=== PATIENT | male | born 1950 | race Caucasian/White ===

== ENCOUNTER → 2019-02-08 | Outpatient (CLI) | payer MEDICARE, OTHER ==
[~2019-02-08] MED LIST: KLONOPIN1 MG PO; LITHIUM CARBON600 MG PO; NEXIUM 40MG40 MG PEG; ZYPREXA5 MG PO
== END ==
LOC: COL.RAD 08:24
DX: Z13.6 Encounter for screening for cardiovascular disorders (principal); Z87.891 Personal history of nicotine dependence

== ENCOUNTER → 2019-12-11 | Outpatient (CLI) | payer MEDICARE, OTHER | LOC: COL.PUL 08:00 | DX: R06.02 Shortness of breath (principal); Z87.891 Personal history of nicotine dependence ==

== ENCOUNTER → 2021-08-27 | Outpatient (CLI) | payer MEDICARE, OTHER | LOC: COL.RAD 13:14 | DX: N28.1 Cyst of kidney, acquired (principal); N18.9 Chronic kidney disease, unspecified; I31.8 Other specified diseases of pericardium; R91.8 Other nonspecific abnormal finding of lung field ==

== ENCOUNTER → 2022-01-08 | Outpatient (CLI) | payer MEDICARE, OTHER | LOC: COL.VAS 08:33 | DX: N18.9 Chronic kidney disease, unspecified (principal) ==

== ENCOUNTER 2023-05-31 20:36 | Inpatient (IN) | payer MEDICARE ==
[~2023-05-31] VITALS: Ht 167.6 cm; Wt 101.0 kg
[~2023-05-31 20:36] MED LIST changes: +ABILIFY5 MG PO; +ATARAX 25MG25 MG/TAB PO; +ATIVAN 0.50.5 MG/TAB PO; +COGENTIN 1MG1 MG/TAB PO; +COZAAR 25MG25 MG/TAB PO; +LAMICTAL 100MG100 MG PO; +LIPITOR 80MG80 MG PO; +MICROZIDE12.5 MG PO; +PEPCID 20MG TAB20 MG PO; +PROSCAR 5MG5 MG PO; +RISPERDAL 1M1 MG/TAB PO; +ROBAXIN 50500 MG/TAB PO; +SEROQUEL 1100 MG/TAB PO; +TOPROL XL 25MG25 MG PO; +ZYPREXA ZYD10 MG/TAB PO
[2023-05-31] MEDS ORDERED: NS 1,000 ML IV ONE (21:15)
[2023-05-31] MEDS ORDERED: fentaNYL 50 MCG/ML 2 ML VIAL IV ONE (21:15)
[2023-05-31 21:35] LABS: BASO % 0.4 % (0.0-2.0); EOS # 0.1 K/mm3 (0.0-0.7); EOS % 1.4 % (0.0-4.0); GRAN # 7.2 K/mm3 (1.4-6.5); GRAN % 71.3 % (42.2-75.2); HEMATOCRIT 38.4 % (42.0-52.0); HEMOGLOBIN 13.1 g/dl (13.5-18.0); LYMPH # 1.7 K/mm3 (1.2-3.4); LYMPH % 16.7 % (20.0-51.0); MEAN CELL VOLUME 89 fl (80.0-100.0); MEAN CORPUSCULAR HEMOGLOBIN 30 pg (27-31); MEAN CORPUSCULAR HGB CONC 34 g/dl (33.0-37.0); MEAN PLATELET VOLUME 9.9 fl (7.4-10.4); MONO % 9.9 % (1.7-9.3); PLATELET COUNT 197 K/mm3 (130-400); RED BLOOD COUNT 4.34 M/mm3 (4.20-5.60); REDCELL DISTRIBUTION WIDTH-CV 13.3 % (11.5-14.5)
[2023-05-31 21:55] LABS: ALBUMIN 3.9 gm/dL (3.4-4.8); BILIRUBIN,TOTAL 0.9 mg/dL (0.2-1.2); C-REACTIVE PROTEIN 0.39 mg/dL (0.00-0.50); CALCIUM 9.2 mg/dL (8.4-10.2); CREATININE, serum 2.02 mg/dL (0.72-1.25); POTASSIUM 3.9 mmol/L (3.5-4.5); TOTAL PROTEIN 6.5 gm/dL (6.2-8.1)
[2023-06-01] VITALS (12 sets, daily range): BP systolic 97–129; BP diastolic 65–80; PULSE 82–98; TEMP 97.6–99.8
[2023-06-01] MEDS ORDERED: fentaNYL 50 MCG/ML 2 ML VIAL IV ONE (01:15)
[2023-06-01] MEDS ORDERED: DESYREL 50MG50 MG PO (01:24)
[2023-06-01] MEDS ORDERED: DEPAKOTE ER 25250 MG PO (01:25)
[2023-06-01] MEDS ORDERED: MICARDIS20 MG PO (01:26)
[2023-06-01] MEDS ORDERED: PRILOSEC 20MG20 MG PO (01:26)
[2023-06-01] MEDS ORDERED: INVEGA6 MG PO (01:27)
[2023-06-01] MEDS ORDERED: MULTIPLE VITAMI1 CAP PO (01:27)
[2023-06-01] MEDS ORDERED: [UNRECOGNIZED DRUG - OTHER] TP (01:28)
[2023-06-01] MEDS ORDERED: NS 1,000 ML IV SCH ×2 (01:45→12:00)
[2023-06-01] MEDS ORDERED: Acetaminophen 325 MG TAB PO PRN (01:45)
[2023-06-01] MEDS ORDERED: Morphine 4 MG/ML VIAL IV PRN (01:45)
[2023-06-01] MEDS ORDERED: Ondansetron 4 MG/2 ML VIAL IV PRN ×2 (01:45→11:00)
[2023-06-01] MEDS ORDERED: traZODone 50 MG TAB PO PRN (02:00)
--- NOTE | 2023-06-01 02:41 | NUR ---
Patient arrived to surgical unit from ER at approximately 0210. Alert and oriented x 4, and able to make needs known. Denies having pain and discomfort at this time, stating that the Fentanyl helped. Encouraged to call when pain starts to come back to try and stay on top of the pain, and voiced understanding. Given ice water, juice, and jello as requested. Peripheral IV to right AC, IV fluids started per orders. Denies having SOB and dyspnea. LS CTA. HRR. BSAx4. Reports BM 05/30. No edema. Patient denies having any questions, needs, or concerns at this time. When completing med rec, noted that Depakote was put in wrong, he takes 500 mg BID, not 250 BID. Call placed to DEVIN Mcgowan and asked if he wanted to change his order to 500 BID, but stated not at this time. Patient in bed with call light within reach.
--- NOTE | 2023-06-01 02:45 | NUR ---
DEVIN Mcgowan changed Depakote to 500 mg PO BID, per home dose.
--- NOTE | 2023-06-01 05:57 | NUR ---
Patient given PRN Morphine as requested for abdominal pain. Continues on IV fluids per orders. Encouraged to not drink as much to see if that helps decrease pain as well. Voices no further questions, needs, or concerns at this time. In bed with call light within reach.
[2023-06-01 07:35] LABS: HEMATOCRIT 38.4 % (42.0-52.0); MEAN CELL VOLUME 89 fl (80.0-100.0); MEAN CORPUSCULAR HEMOGLOBIN 30 pg (27-31); MEAN CORPUSCULAR HGB CONC 34 g/dl (33.0-37.0); MEAN PLATELET VOLUME 10.4 fl (7.4-10.4); PLATELET COUNT 199 K/mm3 (130-400); RED BLOOD COUNT 4.34 M/mm3 (4.20-5.60); REDCELL DISTRIBUTION WIDTH-CV 13.4 % (11.5-14.5)
[2023-06-01 08:06] LABS: CHOLESTEROL RISK RATIO 3.3
[2023-06-01 08:12] LABS: ALANINE AMINOTRANSFERASE 16 U/L (0-55); ALBUMIN 3.8 gm/dL (3.4-4.8); ALKALINE PHOSPHATASE 55 U/L (40-150); ANION GAP 12 mmol/L (7-16); AST,SGOT 19 U/L (5-34); BLOOD UREA NITROGEN 31 mg/dL (8-26); CALCIUM 9.1 mg/dL (8.4-10.2); CARBON DIOXIDE 23 mmol/L (23-31); CHLORIDE 107 mmol/L (98-107); CREATININE, serum 1.93 mg/dL (0.72-1.25); GLUCOSE 98 mg/dL (70-99); MAGNESIUM 1.8 mg/dL (1.6-2.6); SODIUM 142 mmol/L (136-145); TOTAL PROTEIN 6.6 gm/dL (6.2-8.1)
[2023-06-01 08:32] LABS: LIPASE > 1200 U/L (8-78)
[2023-06-01] MEDS ORDERED: Pantoprazole 40 MG in NS 10 ML IV SCH (09:00)
[2023-06-01] MEDS ORDERED: Telmisartan 40 MG **** subs to Losartan 50 MG PO SCH (09:00)
[2023-06-01] MEDS ORDERED: Heparin 5,000 UNITS/ML 1 ML VIAL SQ SCH (09:00)
[2023-06-01] MEDS ORDERED: Patient's Own Medication Item PO SCH ×3 (09:00→20:00)
[2023-06-01] MEDS ORDERED: Benztropine 1 MG TAB PO SCH (09:00)
[2023-06-01] MEDS ORDERED: Finasteride 5 MG TAB PO SCH (09:00)
[2023-06-01] MEDS ORDERED: Losartan 50 MG TAB PO SCH (09:00)
--- NOTE | 2023-06-01 09:22 | NUR ---
community worker attended interdisciplinary clinical rounding and patient will have an ultrasound completed and then may need his gallbladder removed depending on the results. SW notes PT has signed off on this patient. Soical worker met with patient to discuss discharge planning. Patient reports he lives in [place] with his , Anjelica, P# [phone]. PCP is Dr. Bajwa, Pharmacy is [facility]. No issues affording medications at this time. Patient reports his DPOA-HC is Anjelica and believes there is a copy of this form at home. Patient has a quad cane that he does not currently use, no other DME. Patient reports to be independent with ADLS. Patient transports himself to and from appointments. Patient would like to return home at time of discharge. Discharge plan: Home
[2023-06-01] MEDS ORDERED: cefTRIAXone 2 G in Water For Injection,Sterile 20 ML IV SCH (10:00)
[2023-06-01] MEDS ORDERED: metroNIDAZOLE 500 MG/100 ML IVPB IV SCH (10:00)
--- NOTE | 2023-06-01 11:00 | NUR ---
PT RESTING IN BED WTIH PAIN IN ABDOMEN, PAIN MEDICATION PROVIDED PER EMAR. PT REMAINS NPO FOR PROCEDURES TODAY, STEADY GAIT TO BATHROOM, FAMILY AT BEDSIDE. NO NEEDS AT THIS TIME, WILL CONTINUE TO MONITOR.
[2023-06-01] MEDS ORDERED: Lidocaine PF 2% (20 MG/ML) 5 ML VIAL ONE (12:47)
--- NOTE | 2023-06-01 13:03 | NUR ---
D: Initial visit: Product Inspection Coordinator stopped by room on rounds. Pt was resting and content with in the room. A: Pt requested prayer. Product Inspection Coordinator prayed with and pt, both appreciated the visit. No other needs right now. P: Product Inspection Coordinator informed pt that if he needed anything from the rigging slinger area to let his nurse know. Product Inspection Coordinator will follow up as needed.
--- NOTE | 2023-06-01 20:49 | NUR ---
PT IN BED, REPORTS PAIN IN ABD IS LESS. HS MEDS GIVEN INCLUDING TRAZODONE FOR SLEEP. HAS IVF TO RAC INFUSING WITHOUT PROBLEM. INDEPENDENT IN ROOM.
--- NOTE | 2023-06-01 22:03 | NUR ---
PT REPORTS PAIN TO ABD, MORPHINE 2MG IVP GIVEN NOW.
[2023-06-02] VITALS (7 sets, daily range): BP systolic 110–155; BP diastolic 71–78; PULSE 98–103; TEMP 97.8–98.5
--- NOTE | 2023-06-02 02:00 | NUR ---
PT RESTING IN BED. IS NPO.
[2023-06-02 06:46] LABS: BASO % 0.3 % (0.0-2.0); EOS # 0.2 K/mm3 (0.0-0.7); EOS % 2.5 % (0.0-4.0); GRAN # 6.5 K/mm3 (1.4-6.5); GRAN % 70.5 % (42.2-75.2); HEMOGLOBIN 11.6 g/dl (13.5-18.0); LYMPH # 1.2 K/mm3 (1.2-3.4); LYMPH % 13.1 % (20.0-51.0); MEAN CELL VOLUME 91 fl (80.0-100.0); MEAN CORPUSCULAR HEMOGLOBIN 30 pg (27-31); MEAN CORPUSCULAR HGB CONC 33 g/dl (33.0-37.0); MEAN PLATELET VOLUME 10.5 fl (7.4-10.4); MONO # 1.2 K/mm3 (0.1-0.6); MONO % 13.2 % (1.7-9.3); PLATELET COUNT 167 K/mm3 (130-400); RED BLOOD COUNT 3.85 M/mm3 (4.20-5.60); REDCELL DISTRIBUTION WIDTH-CV 13.8 % (11.5-14.5)
[2023-06-02 06:52] LABS: CALCIUM 8.8 mg/dL (8.4-10.2); CREATININE, serum 1.78 mg/dL (0.72-1.25); POTASSIUM 3.9 mmol/L (3.5-4.5)
--- NOTE | 2023-06-02 08:14 | NUR ---
PT RESTING IN BED WITH NO PAIN AT THIS TIME. STEADY GAIT TO BATHROOM, PT TOLERATING CLEAR LIQUIDS WELL. NO NEEDS AT THIS TIME, WILL CONTINUE TO MONITOR.
--- NOTE | 2023-06-02 10:56 | NUR ---
Initial visit; Patient and his Sean thanked Rehabilitation Psychologist for looking in on him and offering God's blessings. Rehabilitation Psychologist will keep Maxi in her prayers. He states he is doing well and is very thankful for this and requested that Rehabilitation Psychologist mention this in her prayers for him.
--- NOTE | 2023-06-02 14:10 | NUR ---
Pt and family provided discharge instructions. Discussed follow up appointments, discontinued medication, and new diet. No questions at this time. IV removed. Pt and family escorted out of building at this time.
== END 2023-06-02 14:10 | disposition home or self-care (01) | DRG 440 ==
LOC: COL.ER 20:36 → SURG 06-01 01:30
PROVIDERS: Emergency Medicine; Internal Medicine Gastroenterology; Physician Assistant; ADMIT Internal Medicine
PROC: 0DJ08ZZ Inspection of Upper Intestinal Tract, Via Natural or Artificial Opening Endoscopic (ICD-10-PCS; principal; 2023-06-01 13:00)
DX: K85.90 Acute pancreatitis without necrosis or infection, unspecified (principal); F25.9 Schizoaffective disorder, unspecified; K21.9 Gastro-esophageal reflux disease without esophagitis; N40.0 Benign prostatic hyperplasia without lower urinary tract symptoms; K80.20 Calculus of gallbladder without cholecystitis without obstruction; E78.5 Hyperlipidemia, unspecified; I12.9 Hypertensive chronic kidney disease with stage 1 through stage 4 chronic kidney disease, or unspecified chronic kidney disease; G47.00 Insomnia, unspecified; T42.6X5A Adverse effect of other antiepileptic and sedative-hypnotic drugs, initial encounter; N18.30 Chronic kidney disease, stage 3 unspecified; Z87.891 Personal history of nicotine dependence; Z90.89 Acquired absence of other organs; Z88.0 Allergy status to penicillin; Z79.899 Other long term (current) drug therapy; Z88.8 Allergy status to other drugs, medicaments and biological substances; Z23 Encounter for immunization
CPT/HCPCS: C9113; J0696; J1644; J1836; J2270; J2704; J3010; J7030

== ENCOUNTER 2023-10-16 15:22 | Emergency (ER) | payer MEDICARE, OTHER ==
[~2023-10-16] VITALS: Ht 167.6 cm; Wt 98.6 kg
[~2023-10-16 15:22] MED LIST changes: +DEPAKOTE ER 25250 MG PO; +DESYREL 50MG50 MG PO; +INVEGA6 MG PO; +MICARDIS20 MG PO; +MULTIPLE VITAMI1 CAP PO; +PRILOSEC 20MG20 MG PO; +[UNRECOGNIZED DRUG - OTHER] TP
[2023-10-16 15:30] VITALS: TEMP 97.6
[2023-10-16] MEDS ORDERED: Morphine 4 MG/ML VIAL IV PRN (16:00)
[2023-10-16] MEDS ORDERED: NS 1,000 ML IV ONE (16:00)
[2023-10-16] MEDS ORDERED: Ondansetron 4 MG/2 ML VIAL IV ONE (16:00)
[2023-10-16 16:23] LABS: BASO % 0.1 % (0.0-2.0); EOS # 0.1 K/mm3 (0.0-0.7); EOS % 1.7 % (0.0-4.0); GRAN # 6.2 K/mm3 (1.4-6.5); HEMOGLOBIN 12.1 g/dl (13.5-18.0); LYMPH # 1.2 K/mm3 (1.2-3.4); LYMPH % 14.5 % (20.0-51.0); MEAN CELL VOLUME 90 fl (80.0-100.0); MEAN CORPUSCULAR HEMOGLOBIN 30 pg (27-31); MEAN CORPUSCULAR HGB CONC 33 g/dl (33.0-37.0); MEAN PLATELET VOLUME 9.8 fl (7.4-10.4); MONO # 0.7 K/mm3 (0.1-0.6); MONO % 8.5 % (1.7-9.3); PLATELET COUNT 196 K/mm3 (130-400); RED BLOOD COUNT 4.09 M/mm3 (4.20-5.60); REDCELL DISTRIBUTION WIDTH-CV 12.4 % (11.5-14.5)
[2023-10-16 16:37] LABS: HEMATOCRIT 36.7 % (42.0-52.0)
[2023-10-16 16:37] LABS: COLLECTION METHOD CLEAN CATCH
[2023-10-16 16:42] LABS: ALANINE AMINOTRANSFERASE 17 U/L (0-55); ALKALINE PHOSPHATASE 97 U/L (40-150); ANION GAP 11 mmol/L (7-16); AST,SGOT 16 U/L (5-34); BILIRUBIN,TOTAL 0.5 mg/dL (0.2-1.2); BLOOD UREA NITROGEN 24 mg/dL (8-26); CALCIUM 9.2 mg/dL (8.4-10.2); CHLORIDE 108 mEq/L (98-107); CREATININE, serum 1.76 mg/dL (0.72-1.25); GLUCOSE 118 mg/dL (70-99); POTASSIUM 3.9 mEq/L (3.5-4.5); SODIUM 138 mEq/L (136-145); TOTAL PROTEIN 6.9 g/dl (6.2-8.1)
[2023-10-16 16:43] LABS: LIPASE > 1200 U/L (8-78)
[2023-10-16 16:50] LABS: PH 5.5 (5.0-8.5); URINE APPEARANCE CLEAR (CLEAR/HAZY); URINE BLOOD NEGATIVE (NEGATIVE); URINE COLOR YELLOW (YELLOW); URINE GLUCOSE NEGATIVE (NEGATIVE); URINE KETONE NEGATIVE (NEGATIVE); URINE NITRATE NEGATIVE (NEGATIVE); URINE PROTEIN(semi-quant) NEGATIVE (NEGATIVE); URINE UROBILINOGEN 0.2 E.U/dL (0.2-1.0)
[2023-10-16] MEDS ORDERED: Iodixanol-320 100 ML BOTTLE IV ONE (17:19)
[2023-10-16] MEDS ORDERED: NS 100 ML IV ONE (17:20)
[2023-10-16] MEDS ORDERED: ZOFRAN ODT4 MG PO (18:10)
[2023-10-16] MEDS ORDERED: PERCOCET 325 MG1 TA2 PO (18:10)
[2023-10-16] MEDS ORDERED: Home oxyCODONE/Acetaminophen 5/325 MG #4 TAB/PACK PO ONE (19:00)
[2023-10-16] MEDS ORDERED: Home Ondansetron ODT 4 MG #2 ODT/PACK PO ONE (19:00)
[2023-10-16 19:05] VITALS: BP 146/92; PULSE 80
[2023-10-17] MEDS ORDERED: ZOFRAN ODT4 MG PO (12:41)
[2023-10-17] MEDS ORDERED: PERCOCET 325 MG1 TA2 PO (12:41)
== END 2023-10-16 19:09 | disposition home or self-care (01) ==
LOC: COL.ER 15:22
PROVIDERS: Emergency Medicine
DX: K85.90 Acute pancreatitis without necrosis or infection, unspecified (principal)
CPT/HCPCS: J2270; J2405; J7030; Q9967

== ENCOUNTER 2023-11-11 09:29 | Day surgery (SDC) | payer MEDICARE ==
[~2023-11-11] VITALS: Ht 167.6 cm; Wt 97.0 kg
[~2023-11-11 09:29] MED LIST changes: +LR 1,000 ML IV SCH; +Meclizine 25 MG TAB PO SCH; +PEPCID AC20 MG PO; +PERCOCET 325 MG1 TA2 PO; -PRILOSEC 20MG20 MG PO; +ZOFRAN ODT4 MG PO
[2023-11-11] MEDS ORDERED: Indocyanine Green 12.5 MG in Water For Injection,Sterile 2.5 ML IV ONE (10:30)
[2023-11-11] MEDS ORDERED: TRILEPTAL 300M300 MG PO (10:49)
--- NOTE | 2023-11-11 11:00 | NUR ---
The patient ambulated back to [place] [facility] independently using a steady gait and appeared to tolerate the activity well. Vital signs obtained. Consent signed. 18G IV started in left hand with one stick, LR infusing without difficulty. Assessment completed. Home medications reconcilled. was brought back to be at his bedside. Warm blanket provided. Denies any further needs at this time.
[2023-11-11 11:05] VITALS: BP 109/74; PULSE 72; TEMP 97.7
[2023-11-11] MEDS ORDERED: Lidocaine PF 2% (20 MG/ML) 5 ML VIAL ONE (11:07)
[2023-11-11] MEDS ORDERED: fentaNYL 50 MCG/ML 2 ML VIAL ONE (11:07)
[2023-11-11] MEDS ORDERED: dexAMETHasone 10 MG/ML VIAL ONE (11:07)
[2023-11-11] MEDS ORDERED: Ondansetron 4 MG/2 ML VIAL ONE (11:07)
[2023-11-11] MEDS ORDERED: NS 10 ML IV ONE (11:07)
[2023-11-11] MEDS ORDERED: Rocuronium 50 MG/5 ML Multi-Dose VIAL ONE (11:08)
[2023-11-11] MEDS ORDERED: HYDROmorphone 1 MG/1 ML SYRINGE [PACU/SDC ONLY] IV PRN (13:00)
[2023-11-11] MEDS ORDERED: fentaNYL 50 MCG/ML 1 ML SYRINGE/VIAL [PACU/SDC ONLY] IV PRN (13:00)
[2023-11-11] MEDS ORDERED: hydrALAZINE 20 MG/ML 1 ML VIAL IV PRN (13:00)
[2023-11-11] MEDS ORDERED: Morphine 2 MG/1 ML VIAL [PACU/SDC ONLY] IV PRN (13:00)
[2023-11-11] MEDS ORDERED: Ondansetron 4 MG/2 ML VIAL IV PRN ×2 (13:00→14:30)
[2023-11-11] MEDS ORDERED: Bacteriostatic Sodium Chloride 0.9% 30 ML Multi-Dose VIAL IJ ONE (13:14)
[2023-11-11] MEDS ORDERED: Iohexol 350 - 100 ML VIAL BILE DUCT ONE (13:14)
[2023-11-11] MEDS ORDERED: Phenylephrine 10 MG/ML VIAL ONE (13:59)
[2023-11-11] MEDS ORDERED: LR 1,000 ML IV ONE (14:12)
[2023-11-11] MEDS ORDERED: Ibuprofen 600 MG TAB PO PRN (14:30)
[2023-11-11] MEDS ORDERED: Acetaminophen 325 MG TAB PO PRN (14:30)
[2023-11-11 15:10] VITALS: BP 144/64; PULSE 64; TEMP 97.4
[2023-11-11 15:25] VITALS: BP 146/69; PULSE 76
[2023-11-11 15:40] VITALS: BP 133/65; PULSE 68
--- NOTE | 2023-11-11 16:00 | NUR ---
1510 RETURNS TO ROOM 3 PER CART WITH HOB ELEVATED 60 DEGREES. AWAKE, ALERT. RESP UNLABORED. ABD SOFT. LAP INCISION SITES X5 INTACT WITHOUT EDEMA, REDNESS OR DRAINAGE. REPORTS MILD "GAS" PAIN. CALL LIGHT AT SIDE. IN ROOM 1525 TOLERATES PO WATER, SODA AND ICE CREAM WITHOUT NAUSEA 1530 DISCHARGE INSTRUCTIONS REVIEWED. PATIENT VERBALIZES UNDERSTANDING. COPY PROVIDED IN DISCHARGE FOLDER. 1545 SITS ON EDGE OF CART. DRESSES SELF
== END 2023-11-11 16:00 | disposition home or self-care (01) ==
LOC: SDCO 09:29
DX: K80.10 Calculus of gallbladder with chronic cholecystitis without obstruction (principal); K85.90 Acute pancreatitis without necrosis or infection, unspecified; F17.210 Nicotine dependence, cigarettes, uncomplicated; Z79.899 Other long term (current) drug therapy
CPT/HCPCS: J0690; J1100; J1170; J2371; J2405; J2704; J3010; J7120; Q9967